=== PATIENT | female | born 1975 | race Caucasian/White ===

== ENCOUNTER 2017-12-09 11:02 | Emergency (ER) | payer OTHER ==
[~2017-12-09] VITALS: Ht 152.4 cm; Wt 79.4 kg
[2017-12-09 11:15] VITALS: Ht 152.4 cm; Wt 79.4 kg
[2017-12-09 13:24] VITALS: BP 101/96
== END 2017-12-09 13:24 | disposition home or self-care (01) ==
LOC: ED 11:02
DX: S09.90XA Unspecified injury of head, initial encounter (principal); W18.30XA Fall on same level, unspecified, initial encounter; Y93.89 Activity, other specified; Y92.89 Other specified places as the place of occurrence of the external cause; Y99.8 Other external cause status
CPT/HCPCS: J1885

== ENCOUNTER 2017-12-11 13:54 | Emergency (ER) | payer OTHER ==
[~2017-12-11] VITALS: Ht 165.1 cm; Wt 81.2 kg
[2017-12-11 14:02] VITALS: Ht 165.1 cm; Wt 81.2 kg
[2017-12-11 15:44] VITALS: BP 118/64
== END 2017-12-11 15:44 | disposition home or self-care (01) ==
LOC: ED 13:54
DX: F07.81 Postconcussional syndrome (principal)